=== PATIENT | female | born 1980 | race Caucasian/White ===

== ENCOUNTER 2020-12-13 19:10 | Emergency (ER) | payer OTHER, SELFPAY ==
--- NOTE | 2020-12-13 19:11 | XRR_ITS ---
PROCEDURE INFORMATION: Exam: XR Chest Exam date and time: 12/13/2020 7:11 PM Age: 40 years old Clinical indication: Pain; Angina pectoris; Additional info: Cp TECHNIQUE: Imaging protocol: XR of the chest. Views: 1 view. COMPARISON: CT abdomen pelvis w con* [id number] 01/08/2015 12:39 PM FINDINGS: Lungs: No focal consolidation. Minor linear scarring/atelectasis along the mid/lower aspects of both lungs. Pleural spaces: Unremarkable. No pleural effusion. No pneumothorax. Heart/Mediastinum: Unremarkable. No cardiomegaly. Bones/joints: Unremarkable. XR/XR chest 1V portable [id number] IMPRESSION: No acute cardiopulmonary findings. Minor linear scarring/atelectasis at the mid/lower aspects of both lungs.
--- NOTE | 2020-12-13 19:11 | ECG_ITS ---
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 Measurements Intervals [place] Rate: 100 P: 53 NM: 140 QRS: 61 QRSD: 86 T: 83 QT: 317 QTc: 410 Interpretive Statements SINUS TACHYCARDIA POSSIBLE LEFT ATRIAL ENLARGEMENT [-0.1mV P WAVE IN V1/V2] NONSPECIFIC ST & T-WAVE ABNORMALITY ABNORMAL RHYTHM ECG No previous ECG available for comparison Electronically Signed On 12-15-2020 17:16:23 CDT by Pito Silva M.D. [email or web address] [email or web address].[employer]store/OM/[id number]
[2020-12-13 19:16] VITALS: BP 149/95; PULSE 102; RESP 19; TEMP 36.8; O2SAT 92; BMI 45.7
--- NOTE | 2020-12-13 19:19 | W.ED.CHESTPA ---
HPI - Chest Pain General: Chief Complaint: General Medical Stated Complaint: chest pain Time Seen by Provider: 12/13/20 19:11 Source: patient and EMS Mode of arrival: EMS Limitations: no limitations History of Present Illness: HPI narrative: 40-year-old female states that she is having palpitations and chest pain roughly an hour ago. She states that she had her Cristina shot 3 hours ago feels like it may causes. She states that she has felt like she could not catch her breath and she was tachycardic and having a sharp pain. States her symptoms have since improved and they are very mild currently. She denies any fever. Denies any worsening improving factors. Denies any history of heart issues. Associated symptoms: Reports palpitations; Deny abdominal pain, dyspnea, fever(s), nausea or vomiting Review of Systems Const: Denies: fever(s), chills, body aches or change in appetite Eyes: Denies: blurry vision or eye discomfort ENMT: Denies: throat pain or dental pain Card: Reports: chest pain and palpitations Resp: Denies: dyspnea GI: Denies: abdominal pain, nausea, vomiting or diarrhea : Denies: dysuria Musc: Denies: neck pain or back pain Skin/Breast: Denies: rash Neuro: Denies: headache(s) Psych: Denies: depression Jorge/Lymph: Denies: easy bruising All/Imm: Denies: urticaria Physical Exam Const: COMMON NORMALS: no acute distress, patient oriented x3 and healthy appearing HENMT: COMMON NORMALS: normocephalic and atraumatic HEAD & SCALP: normocephalic and atraumatic Eye: COMMON NORMALS: Equal, round and reactive pupils present and EOMs intact bilaterally PUPIL: Yes Equal, round and reactive pupils present Neck/C-Spine: COMMON NORMALS: full ROM and supple Chest: COMMONS NORMALS: normal inspection of the chest and normal palpation of entire chest wall Resp: COMMON NORMALS: normal respiratory effort, No retractions, No use of accessory muscles and clear to auscultation bilaterally AUSCULTATION: clear to auscultation bilaterally Cardio: COMMON NORMALS: regular rate, regular rhythm and No murmurs present (Cardio) RATE: regular rate RHYTHM: regular rhythm GI: COMMON NORMALS: Normal to inspection, nondistended, normoactive bowel sounds present, Soft to palpation, non-tender and no masses PALPATION: Yes Soft to palpation Extremity: COMMON NORMALS: normal to inspection and full ROM Neuro: COMMON NORMALS: patient oriented x3, moves all extremities and no focal motor deficits Psych: COMMON NORMALS: mental status grossly normal, Normal thought process present and cooperative THOUGHT PROCESS: Normal thought process present Skin: COMMON NORMALS: no rashes or lesions noted and no wounds GENERAL SKIN EXAM: no rashes or lesions noted Course Vital Signs: Vital signs: Vital Signs Temperature 98.3 F 12/13/20 19:16 Pulse Rate 102 H 12/13/20 19:16 Respiratory Rate 19 H 12/13/20 19:16 Blood Pressure 149/95 12/13/20 19:16 Pulse Oximetry 92 12/13/20 19:16 MDM - Chest Pain MDM Narrative: Medical decision making narrative: Patient presents here with chest pain dyspnea after receiving her Covid vaccine but since all resolved. Her blood work here is all normal with initial repeat troponins normal. EKG is here been normal as well. She had no tachycardia here. She said no shortness of breath no signs of pulmonary embolism. She is stable for discharge and is to follow-up PCP and return if worsening. Lab Data: Labs: Lab Results 12/13/20 12/13/20 12/13/20 Range/Units 19:23 19:23 19:23 WBC (4.0-10.0) 10^3/ uL RBC (4.1-5.3) 10^6/u L Hgb (11.5-15.3) g/dL Hct (37.0-47.0) % MCV (81-99) fL MCH (28.0-34.0) pg MCHC (30.0-36.0) g/dL RDW (12.1-15.1) % Plt Count (130-400) 10^3/c mm MPV (7.4-10.4) fL Neut % (Auto) % Lymph % (Auto) % [place] % (Auto) % Eos % (Auto) % Baso % (Auto) % Neut # (Auto) (1.8-7.7) 10^3/u L Lymph # (Auto) (0.8-4.8) 10^3/u L [place] # (Auto) (0.2-0.9) 10^3/u L Eos # (Auto) (0.0-0.8) 10^3/u L Baso # (Auto) (0.0-0.1) 10^3/u L Nucleated RBC % (a uto) % Nucleated RBCs # /100WBC D-Dimer <= 0.27 (0-0.59) ug/mIFE U Sodium 134 L (136-145) mmol/L Potassium 4.5 (3.5-5.1) mmol/L Chloride 100 (98-107) mmol/L Carbon Dioxide 22 (22-29) mmol/L Anion Gap 16.5 (5-19) BUN 9 (6-20) mg/dL Creatinine 0.7 (0.5-0.9) mg/dL GFR Calculation 91.8 (90-130) mL/min Glucose 292 H (65-115) mg/dL Calculated Osmolal ity 287 (285-295) mOsm/k g Calcium 9.1 (8.5-10.5) mg/dL Total Bilirubin 0.2 (0.15-1.2) mg/dL AST 20 (0-32) U/L ALT 24 (0-33) U/L Alkaline Phosphata se 154 H (35-105) IU/L Troponin T Baselin e 6 (0-10) ng/L Troponin T 120 Min [place] (0-10) ng/L Delta Troponin T (0-10) ABS# NT-Pro-B Natriuret Pep 17 (0-125) pg/mL Total Protein 7.1 (6.6-8.7) g/dL Albumin 3.6 (3.5-5.2) g/dL Globulin 3.5 (1.3-4.6) g/dL 12/13/20 12/13/20 Range/Units 19:23 21:08 WBC 9.5 (4.0-10.0) 10^3/ uL RBC 4.59 (4.1-5.3) 10^6/u L Hgb 14.2 (11.5-15.3) g/dL Hct 43.6 (37.0-47.0) % MCV 95.0 (81-99) fL MCH 30.9 (28.0-34.0) pg MCHC 32.6 (30.0-36.0) g/dL RDW 13.4 (12.1-15.1) % Plt Count 271 (130-400) 10^3/c mm MPV 9.7 (7.4-10.4) fL Neut % (Auto) 65.4 % Lymph % (Auto) 27.9 % [place] % (Auto) 4.6 % Eos % (Auto) 1.2 % Baso % (Auto) 0.5 % Neut # (Auto) 6.21 (1.8-7.7) 10^3/u L Lymph # (Auto) 2.7 (0.8-4.8) 10^3/u L [place] # (Auto) 0.4 (0.2-0.9) 10^3/u L Eos # (Auto) 0.1 (0.0-0.8) 10^3/u L Baso # (Auto) 0.1 (0.0-0.1) 10^3/u L Nucleated RBC % (a uto) 0 % Nucleated RBCs # 0.0 /100WBC D-Dimer (0-0.59) ug/mIFE U Sodium (136-145) mmol/L Potassium (3.5-5.1) mmol/L Chloride (98-107) mmol/L Carbon Dioxide (22-29) mmol/L Anion Gap (5-19) BUN (6-20) mg/dL Creatinine (0.5-0.9) mg/dL GFR Calculation (90-130) mL/min Glucose (65-115) mg/dL Calculated Osmolal ity (285-295) mOsm/k g Calcium (8.5-10.5) mg/dL Total Bilirubin (0.15-1.2) mg/dL AST (0-32) U/L ALT (0-33) U/L Alkaline Phosphata se (35-105) IU/L Troponin T Baselin e (0-10) ng/L Troponin T 120 Min [place] 8.21 (0-10) ng/L Delta Troponin T 2.21 (0-10) ABS# NT-Pro-B Natriuret Pep (0-125) pg/mL Total Protein (6.6-8.7) g/dL Albumin (3.5-5.2) g/dL Globulin (1.3-4.6) g/dL Imaging Data^: CXR: Attestation: I personally reviewed and interpreted this imaging study as follows: Radiologist's impression: [address] [address] XRay Report Signed Patient: Oanh Souza Unit #: [id number] : 1980 Age/Sex: 40 / F ADM Date: 12/13/20 Loc: ER Room/Bed: Attending Dr: Ordering Provider/Ordering MD: Suzanna Wilkins MD Date of Service: 12/13/20 Procedure(s): XR chest 1V portable [id number] Accession Number(s): [id number] Report Number: [id number] PROCEDURE INFORMATION: Exam: XR Chest Exam date and time: 12/13/2020 7:11 PM Age: 40 years old Clinical indication: Pain; Angina pectoris; Additional info: Cp TECHNIQUE: Imaging protocol: XR of the chest. Views: 1 view. COMPARISON: CT abdomen pelvis w con* [id number] 01/08/2015 12:39 PM FINDINGS: Lungs: No focal consolidation. Minor linear scarring/atelectasis along the mid/lower aspects of both lungs. Pleural spaces: Unremarkable. No pleural effusion. No pneumothorax. Heart/Mediastinum: Unremarkable. No cardiomegaly. Bones/joints: Unremarkable. XR/XR chest 1V portable [id number] IMPRESSION: No acute cardiopulmonary findings. Minor linear scarring/atelectasis at the mid/lower aspects of both lungs. Dictated By: Jordan Bonilal DO EKG Data^: EKG 1: Attestation: I personally reviewed and interpreted this EKG as follows: EKG interpretation date: 12/13/20 EKG interpretation time: 19:24 Interpretation: sinus tach hr [address] or t wave abnormalities qrs 86 qtc 374 EKG 2: Attestation: I personally reviewed and interpreted this EKG as follows: EKG interpretation date: 12/13/20 EKG interpretation time: 21:21 Interpretation: nsr hr [address] or t wave abnormalities qrs 77 qtc 384 Discharge Plan Discharge Patient Disposition: Home Clinical Impression: Chest pain Qualifiers: Chest pain type: unspecified Qualified Code(s): R07.9 - Chest pain, unspecified Condition: Stable Prescriptions: No Action No Known Home Medications RF: 0 Discharge Orders: Discharge ED (Routine); Ordered 12/13/20 Ordered By: Suzanna Wilkins Discharge Diet: Advance as tolerated Discharge Activity: Resume usual activity Patient Instructions: Chest Pain (ED) Coding Level of Care Code ED Senior Living Sales Counselor for Nicole Fwd Exam Comprehensive
[2020-12-13 19:29] LABS: Basophils # 0.1 10^3/uL (0.0-0.1); Basophils % 0.5 %; Eosinophils # 0.1 10^3/uL (0.0-0.8); Eosinophils % 1.2 %; Hematocrit 43.6 % (37.0-47.0); Hemoglobin 14.2 g/dL (11.5-15.3); Lymphocytes # 2.7 10^3/uL (0.8-4.8); Lymphocytes % 27.9 %; Mean Corpuscular HGB Conc 32.6 g/dL (30.0-36.0); Mean Corpuscular Hemoglobin 30.9 pg (28.0-34.0); Mean Platelet Volume 9.7 fL (7.4-10.4); Monocytes # 0.4 10^3/uL (0.2-0.9); Monocytes % 4.6 %; Neutrophils # 6.21 10^3/uL (1.8-7.7); Neutrophils % 65.4 %; Nucleated Red Blood Cells % 0 %; Platelet Count 271 10^3/cmm (130-400); Red Blood Count 4.59 10^6/uL (4.1-5.3); Red Cell Distribution Width 13.4 % (12.1-15.1); White Blood Count 9.5 10^3/uL (4.0-10.0)
[2020-12-13 19:40] LABS: D Dimer <= 0.27 ug/mIFEU (0-0.59)
[2020-12-13 19:46] LABS: Troponin(5th) Baseline 6 ng/L (0-10)
[2020-12-13 19:58] LABS: Alanine Aminotransferase 24 U/L (0-33); Albumin Level 3.6 g/dL (3.5-5.2); Alkaline Phosphatase 154 IU/L (35-105); Aspartate Amino Transferase 20 U/L (0-32); Blood Urea Nitrogen 9 mg/dL (6-20); Calcium 9.1 mg/dL (8.5-10.5); Carbon Dioxide 22 mmol/L (22-29); Chloride 100 mmol/L (98-107); Globulin 3.5 g/dL (1.3-4.6); Glomerular Filtration Rate 91.8 mL/min (90-130); Glucose 292 mg/dL (65-115); NT Pro B Type Natriuretic Pept 17 pg/mL (0-125); Osmolality Calculated 287 mOsm/kg (285-295); Sodium 134 mmol/L (136-145); Total Bilirubin 0.2 mg/dL (0.15-1.2); Total Protein 7.1 g/dL (6.6-8.7)
[2020-12-13 20:07] LABS: Anion Gap 16.5 (5-19); Potassium 4.5 mmol/L (3.5-5.1)
--- NOTE | 2020-12-13 21:11 | ECG_ITS ---
[facility] Test Date: 2020-12-13 Pat Name: Oanh Souza Department: Room: Gender: Female Analysis Lead: : 1980 Requested By: Suzanna Wilkins Order Number: [id number] Nicky MD: Pito Silva M.D. Measurements Intervals [place] Rate: 84 P: 54 SC: 140 QRS: 62 QRSD: 77 T: 82 QT: 343 QTc: 407 Interpretive Statements SINUS RHYTHM POSSIBLE LEFT ATRIAL ENLARGEMENT [-0.1mV P WAVE IN V1/V2] NONSPECIFIC T-WAVE ABNORMALITY Compared to ECG 12/13/2020 19:24:31 Sinus tachycardia no longer present T-wave abnormality still present Electronically Signed On 12-15-2020 17:24:29 CDT by Pito Silva M.D. [email or web address].[employer]/store/OM/[id number]
[2020-12-13 21:48] LABS: Troponin 5 2HR 8.21 ng/L (0-10); Troponin 5 2HR Delta 2.21 ABS# (0-10)
[2020-12-13 22:15] VITALS: BP 161/83; PULSE 90; RESP 22; O2SAT 94
== END 2020-12-13 22:17 | disposition home or self-care (01) ==
PROVIDERS: Emergency Provider Emergency Medicine
DX: R07.9 Chest pain, unspecified (principal)
CPT/HCPCS: 71045; 80053; 83880; 84484; 85025; 85378; 93005; 99283

== ENCOUNTER 2021-01-14 10:11 | Outpatient (CLI) | payer OTHER, SELFPAY ==
--- NOTE | 2021-01-14 10:21 | XR_ITS ---
WS: [id number] Left foot, 3 views, 01/14/2021 Clinical Data: LEFT FOOT PAIN Comparison: None. Findings: No fractures or dislocations are seen. No bone destruction or erosion is noted. The joint spaces and soft tissues are normal. There is a plantar spur and an Achilles spur. XR/XR foot LT min 3V* [id number] Impression: Negative left foot.
== END 2021-01-14 10:12 | disposition home or self-care (01) ==
PROVIDERS: PCP Electrodiagnostic Medicine; Visit Provider Electrodiagnostic Medicine
DX: M79.672 Pain in left foot (principal)
CPT/HCPCS: 73630

== ENCOUNTER 2021-03-04 09:34 | Outpatient (CLI) | payer OTHER, SELFPAY ==
--- NOTE | 2021-03-04 09:39 | MM_ITS ---
WS: [id number] Exam: [place] [id number] Date/Time of Exam: 03/04/2021 9:42 AM Reason For Exam: SCREENING VIEWS: MLO and CC views both breasts. No previous exams. Findings: There was no sign of mass, architectural distortion or suspicious calcification in either breast. Fa tty MM/[place] [id number] Impression: BI-RADS: 2-Benign FOLLOW-UP: 1 Year Follow-up This mammogram was also analyzed by the Computer Aided Detection System R2 Imag e Singeing Torch Operator.
== END 2021-03-04 09:35 | disposition home or self-care (01) ==
PROVIDERS: PCP Electrodiagnostic Medicine; Visit Provider Electrodiagnostic Medicine
DX: Z12.31 Encounter for screening mammogram for malignant neoplasm of breast (principal)
CPT/HCPCS: 77067

== ENCOUNTER → 2021-03-17 09:56 | Outpatient (BNVA) | payer OTHER, SELFPAY | PROVIDERS: PCP Electrodiagnostic Medicine; Referring Provider Electrodiagnostic Medicine; Visit Provider Podiatrist Foot & Ankle Surgery | DX: M79.672 Pain in left foot (principal) | CPT/HCPCS: 73630 ==

== ENCOUNTER 2021-04-29 15:58 | Outpatient (CLI) | payer OTHER, SELFPAY | END 2021-04-29 15:59 | disposition home or self-care (01) | LOC: SPT 15:58 | PROVIDERS: PCP Electrodiagnostic Medicine; Visit Provider Podiatrist Foot & Ankle Surgery | DX: Z46.89 Encounter for fitting and adjustment of other specified devices (principal); M76.70 Peroneal tendinitis, unspecified leg; E11.9 Type 2 diabetes mellitus without complications | CPT/HCPCS: L3030 ==

== ENCOUNTER 2022-08-28 18:10 | Emergency (ER) | payer OTHER, SELFPAY ==
[2022-08-28 18:14] VITALS: BP 182/137; PULSE 90; RESP 18; TEMP 36.3; O2SAT 95; BMI 43.9
--- NOTE | 2022-08-28 18:24 | ECG_ITS ---
[facility] Test Date: 2022-08-28 Pat Name: Oanh Souza Department: Room: Gender: Female Deputy General Counsel: : 1980 Requested By: Holden Lopez Order Number: [id number] Nicky MD: Shantelle Beth M.D. Measurements Intervals [place] Rate: 79 P: 64 DC: 133 QRS: 67 QRSD: 76 T: 78 QT: 333 QTc: 384 Interpretive Statements SINUS RHYTHM NONSPECIFIC ST & T-WAVE ABNORMALITY Compared to ECG 12/13/2020 21:21:15 No significant changes Electronically Signed On 08-28-2022 23:05:19 CDT by Shantelle Beth M.D. [email or web address] [email or web address] specialty hospital of greenvilleChartCubehocking valley community hospitalEat Latin/store/OM/[id number]
--- NOTE | 2022-08-28 18:55 | XRR_ITS ---
PROCEDURE INFORMATION: Exam: XR Chest Exam date and time: 08/28/2022 7:03 PM Age: 42 years old Clinical indication: Other: Elevated blood pressure; Additional info: Elevated BP readings TECHNIQUE: Imaging protocol: Radiologic exam of the chest. Views: 1 view. COMPARISON: CR XR chest 1V portable [id number] 12/13/2020 7:20 PM FINDINGS: Lungs: Unremarkable. No consolidation. Pleural spaces: Unremarkable. No pleural effusion. No pneumothorax. Heart/Mediastinum: Unremarkable. No cardiomegaly. Bones/joints: Unremarkable. XR/XR chest 1V [id number] IMPRESSION: No acute findings.
[2022-08-28 19:30] LABS: Basophils # 0.1 10^3/uL (0.0-0.1); Basophils % 0.5 %; Eosinophils # 0.2 10^3/uL (0.0-0.8); Eosinophils % 1.4 %; Hematocrit 46.5 % (37.0-47.0); Hemoglobin 15.2 g/dL (11.5-15.3); Lymphocytes # 4.2 10^3/uL (0.8-4.8); Lymphocytes % 35.9 %; Mean Corpuscular HGB Conc 32.7 g/dL (30.0-36.0); Mean Corpuscular Hemoglobin 31.3 pg (28.0-34.0); Mean Corpuscular Volume 95.9 fl (81-99); Mean Platelet Volume 9.5 fL (7.4-10.4); Monocytes # 0.5 10^3/uL (0.2-0.9); Monocytes % 4.4 %; Neutrophils # 6.75 10^3/uL (1.8-7.7); Neutrophils % 57.5 %; Nucleated Red Blood Cells % 0 %; Platelet Count 259 10^3/cmm (130-400); Red Blood Count 4.85 10^6/uL (4.1-5.3); Red Cell Distribution Width 12.9 % (12.1-15.1); White Blood Count 11.7 10^3/uL (4.0-10.0)
[2022-08-28 20:01] LABS: Troponin T (5th) Once 6 ng/L (0-10)
[2022-08-28 20:07] LABS: Alanine Aminotransferase 23 U/L (0-33); Albumin Level 3.8 g/dL (3.5-5.2); Alkaline Phosphatase 129 U/L (35-105); Aspartate Amino Transferase 16 U/L (0-32); Blood Urea Nitrogen 5 mg/dL (6-20); Calcium 9.1 mg/dL (8.5-10.5); Carbon Dioxide 25 mmol/L (22-29); Chloride 101 mmol/L (98-107); Globulin 4.2 g/dL (1.3-4.6); Glucose 143 mg/dL (65-115); Osmolality Calculated 282 mOsm/kg (285-295); Sodium 136 mmol/L (136-145); Thyroid Stimulating Hormone 3.97 uIU/mL (0.27-4.20); Total Bilirubin 0.3 mg/dL (0.15-1.2)
[2022-08-28 20:14] LABS: Anion Gap 14.1 (5-19); Potassium 4.1 mmol/L (3.5-5.1)
[2022-08-28 20:54] LABS: Add Urine Microscopic? NO; Charge for UA Resulting for Rev
[2022-08-28 21:25] LABS: Urine Appearance Clear (CLEAR); Urine Color Colorless (Yellow)
[2022-08-28 21:26] LABS: Bilirubin Urine Neg (Negative); Blood Urine Neg (Negative); Glucose Urine UA Norm (Normal); Ketones Urine Negative (Negative); Leukocyte Esterase Urine Negative (Negative); Nitrate Urine Negative (Negative); Protein Urine Neg (Negative); Sulfosalicylic Acid Urine Negative (Negative); Urobilinogen Urine Neg (Negative); pH Urine 8 (5-7)
[2022-08-28 21:31] VITALS: BP 159/124; PULSE 82; RESP 15; O2SAT 93
--- NOTE | 2022-08-28 21:35 | CTR_ITS ---
PROCEDURE INFORMATION: Exam: CT Head Without Contrast Exam date and time: 08/28/2022 9:40 PM Age: 42 years old Clinical indication: Pain; Headache not specified; Additional info: Headache HTN TECHNIQUE: Imaging protocol: Computed tomography of the head without contrast. Radiation optimization: All CT scans at this facility use at least one of these dose optimization techniques: automated exposure control; mA and/or kV adjustment per patient size (includes targeted exams where dose is matched to clinical indication); or iterative reconstruction. REPORTING DATA: Count of CT and Cardiac NM exams in prior 12 months: This patient has received 0 known CTs and 0 known cardiac nuclear medicine studies in the 12 months prior to the current study. COMPARISON: No relevant prior studies available. RADIATION DOSE METRICS: Total DLP (mGy-cm): 1086.48 FINDINGS: Brain: Normal. No hemorrhage. Unremarkable white matter. No mass effect. Cerebral ventricles: No ventriculomegaly. Paranasal sinuses: Visualized sinuses are unremarkable. No fluid levels. Mastoid air cells: Visualized mastoid air cells are well aerated. Bones/joints: Unremarkable. No acute fracture. Soft tissues: Unremarkable. CT/CT head wo con* [id number] IMPRESSION: No acute intracranial abnormality.
[2022-08-28] MEDS: amlodipine 10 mg Tablet PO (21:47)
[2022-08-28] MEDS: cloNIDine 0.1 mg Tablet PO (21:47)
[2022-08-28 22:22] VITALS: BP 134/87; PULSE 80; RESP 13; O2SAT 93
--- NOTE | 2022-08-29 04:48 | ED_ITS ---
HPI - Headache General: Chief Complaint: Headache Stated Complaint: high bp, headache Time Seen by Provider: 08/28/22 20:13 Source: patient History of Present Illness: 42-year-old female here with headache, generalized fatigue, and high blood pressure. She does not take medicine for high blood pressure, and has never been diagnosed with hypertension. She does have a history of diabetes. When she felt ill, she took her blood pressure and it was significantly elevated. She denies chest discomfort. She does complain of paresthesia to the plantar surface of her right foot, but this is the only area of sensation change. No language or speech problems. No blurry vision. MD elicited complaint: headache Pertinent past history: other Onset (ago): hour(s) Onset description: gradually Location: frontal Quality & Timing: dull and constant Relieving factors: nothing Context: occurred at rest Associated symptoms: Deny chest pain, confusion, cough, eye redness, fever(s), lightheadedness, loss of vision, neck stiffness, photophobia, pre-syncope or vomiting Review of Systems Const: Denies: fever(s) Eyes: Denies: change in vision ENMT: Denies: throat pain Card: Denies: chest pain, lightheadedness or pre-syncope Resp: Denies: dyspnea GI: Denies: abdominal pain or vomiting Neuro: Reports: headache(s); Denies: confusion Physical Exam Const: COMMON NORMALS: no acute distress GENERAL APPEARANCE: cooperative; not ill appearing and not frail appearing HENMT: COMMON NORMALS: normocephalic, atraumatic and Normal external nose present HEAD & SCALP: normocephalic and atraumatic FACE & SINUS: normal facial exam and face symmetric NOSE: Normal external nose present Eye: COMMON NORMALS: Equal, round and reactive pupils present and EOMs intact bilaterally PUPIL: Yes Equal, round and reactive pupils present DIRECT OPHTHALMOSCOPY: No photophobia Neck/C-Spine: GENERAL: Yes trachea midline Chest: CHEST: Yes Symmetrical chest wall rise Resp: COMMON NORMALS: normal respiratory effort, No retractions, No use of accessory muscles and clear to auscultation bilaterally AUSCULTATION: clear to auscultation bilaterally Cardio: COMMON NORMALS: regular rate and regular rhythm RATE: regular rate RHYTHM: regular rhythm GI: COMMON NORMALS: Normal to inspection, nondistended, normoactive bowel sounds present Extremity: COMMON NORMALS: no pedal edema Neuro: TAYLER COMA SCALE: document GCS findings Tayler coma scale eye ope phi: Spontaneous [place] coma scale verbal response: Orientated [place] coma scale motor response: Obey commands Tayler coma scale total score: 15 SENSORY EXAM: Yes extremities (intact) Psych: COMMON NORMALS: speech normal SPEECH: Yes normal speech Skin: COMMON NORMALS: no rashes or lesions noted GENERAL SKIN EXAM: no rashes or lesions noted Course Vital Signs: Vital signs: Vital Signs Temperature 97.4 F L 08/28/22 18:14 Pulse Rate 80 08/28/22 22:22 Respiratory Rate 13 08/28/22 22:22 Blood Pressure 134/87 08/28/22 22:22 Pulse Oximetry 93 08/28/22 22:22 Oxygen Delivery Me thod 08/28/22 22:22 MDM - Headache Medical Decision Making Patient's blood pressure was significantly elevated initially. She was given clonidine, as well as amlodipine. It came down nicely and was 134/87 on discharge. Her headache was much improved with the blood pressure. CT is nonacute. Chest x-ray is nonacute. White blood cell count is 11.7. Other laboratories not remarkable. Urinalysis shows no proteinuria. Troponin is 6. She will be discharged to return if worsening. Treatment for hypertension is given Lab Data 08/28/22 19:20 08/28/22 19:20 Radiology Impressions Chest X-Ray 08/28/22 18:55 IMPRESSION: No acute findings. Head CT 08/28/22 21:35 IMPRESSION: No acute intracranial abnormality. Laboratory Results WBC 11.7 10^3/uL (4.0-10.0) H 08/28/22 19:20 RBC 4.85 10^6/uL (4.1-5.3) 08/28/22 19:20 Hgb 15.2 g/dL (11.5-15.3) 08/28/22 19:20 Hct 46.5 % (37.0-47.0) 08/28/22 19:20 MCV 95.9 fl (81-99) 08/28/22 19:20 MCH 31.3 pg (28.0-34.0) 08/28/22 19:20 MCHC 32.7 g/dL (30.0-36.0) 08/28/22 19:20 RDW 12.9 % (12.1-15.1) 08/28/22 19:20 Plt Count 259 10^3/cmm (130-400) 08/28/22 19:20 MPV 9.5 fL (7.4-10.4) 08/28/22 19:20 Neut % (Auto) 57.5 % 08/28/22 19:20 Lymph % (Auto) 35.9 % 08/28/22 19:20 [place] % (Auto) 4.4 % 08/28/22 19:20 Eos % (Auto) 1.4 % 08/28/22 19:20 Baso % (Auto) 0.5 % 08/28/22 19:20 Neut # (Auto) 6.75 10^3/uL (1.8-7.7) 08/28/22 19:20 Lymph # (Auto) 4.2 10^3/uL (0.8-4.8) 08/28/22 19:20 [place] # (Auto) 0.5 10^3/uL (0.2-0.9) 08/28/22 19:20 Eos # (Auto) 0.2 10^3/uL (0.0-0.8) 08/28/22 19:20 Baso # (Auto) 0.1 10^3/uL (0.0-0.1) 08/28/22 19:20 Nucleated RBC % (auto) 0 % 08/28/22 19:20 Nucleated RBCs # 0.0 /100WBC 08/28/22 19:20 Sodium 136 mmol/L (136-145) 08/28/22 19:20 Potassium 4.1 mmol/L (3.5-5.1) 08/28/22 19:20 Chloride 101 mmol/L (98-107) 08/28/22 19:20 Carbon Dioxide 25 mmol/L (22-29) 08/28/22 19:20 Anion Gap 14.1 (5-19) 08/28/22 19:20 BUN 5 mg/dL (6-20) L 08/28/22 19:20 Creatinine 0.5 mg/dL (0.5-0.9) 08/28/22 19:20 GFR Calculation 134.0 mL/min (90-130) H 08/28/22 19:20 Glucose 143 mg/dL (65-115) H 08/28/22 19:20 Calculated Osmolality 282 mOsm/kg (285-295) L 08/28/22 19:20 Calcium 9.1 mg/dL (8.5-10.5) 08/28/22 19:20 Total Bilirubin 0.3 mg/dL (0.15-1.2) 08/28/22 19:20 AST 16 U/L (0-32) 08/28/22 19:20 ALT 23 U/L (0-33) 08/28/22 19:20 Alkaline Phosphatase 129 U/L (35-105) H 08/28/22 19:20 Troponin T Gen 5 ng/L 6 ng/L (0-10) 08/28/22 19:20 Total Protein 8.0 g/dL (6.6-8.7) 08/28/22 19:20 Albumin 3.8 g/dL (3.5-5.2) 08/28/22 19:20 Globulin 4.2 g/dL (1.3-4.6) 08/28/22 19:20 TSH 3.97 uIU/mL (0.27-4.20) 08/28/22 19:20 Urine Color Colorless (Yellow) 08/28/22 18:50 Urine Appearance Clear (CLEAR) 08/28/22 18:50 Urine pH 8 (5-7) H 08/28/22 18:50 Ur Specific [place] 1.010 (1.005-1.030) 08/28/22 18:50 Urine Protein Neg (Negative) 08/28/22 18:50 Urine Glucose (UA) Norm (Normal) 08/28/22 18:50 Urine Ketones Negative (Negative) 08/28/22 18:50 Urine Blood Neg (Negative) 08/28/22 18:50 Urine Nitrate Negative (Negative) 08/28/22 18:50 Urine Bilirubin Neg (Negative) 08/28/22 18:50 Prot Sulfosalicylic Acd Negative (Negative) 08/28/22 18:50 Urine Urobilinogen Neg mg/dL (Negative) 08/28/22 18:50 Ur Leukocyte Esterase Negative (Negative) 08/28/22 18:50 Urine HCG, Qual Negative (Negative) 08/28/22 18:50 Discharge Plan Discharge Patient Disposition: Home Clinical Impression: Headache, Hypertension Condition: Stable Prescriptions: New amlodipine 10 mg tablet 10 mg PO DAILY Qty: 30 0RF No Action metformin 500 mg tablet 500 mg PO BID atorvastatin [Lipitor] 20 mg tablet 20 mg PO DAILY aspirin [Adult Aspirin Regimen] 81 mg tablet,delayed release (DR/EC) 81 mg PO DAILY (DME) Custom Molded Orthotic with a Deep Heel Cups See Rx Instructions .Route .MEDSUPPLY Qty: 1 0RF Rx Instructions: As directed naproxen [Naprosyn] 500 mg tablet 500 mg PO BID 30 Days Qty: 60 1RF Discharge Orders: Discharge ED (Routine); Ordered 08/28/22 Ordered By: Alex Coy Referrals: Bienvenido Hernandez, [Primary Care Provider] - 4-7 days Patient Instructions: Acute Headache (ED), Hypertension (ED) Activity Restrictions/Additional Instructions: Check your blood pressure twice daily. Record numbers and report them to your physician. If your blood pressure is staying above 140/90, take the prescribed medication. Return for mental status changes, weakness, language or vision problems, chest discomfort, other concerning symptoms. Coding Level of Care Code ED Clinical Care Leader for Nicole Suazo
== END 2022-08-28 23:07 | disposition home or self-care (01) ==
PROVIDERS: Physician Assistant; Emergency Provider Emergency Medicine; PCP Electrodiagnostic Medicine
DX: I10 Essential (primary) hypertension (principal); E11.9 Type 2 diabetes mellitus without complications; Z79.84 Long term (current) use of oral hypoglycemic drugs
CPT/HCPCS: 36415; 70450; 71045; 80053; 81003; 81025; 84443; 84484; 85025; 93005; 99285

== ENCOUNTER 2022-09-03 10:48 | Emergency (ER) | payer OTHER, SELFPAY ==
[2022-09-03] VITALS (9 sets, daily range): BP systolic 135–171; BP diastolic 91–112; PULSE 69–92; RESP 16–17; TEMP 36.6; O2SAT 95–99; BMI 43.9
--- NOTE | 2022-09-03 11:08 | ECG_ITS ---
[facility] Test Date: 2022-09-03 Pat Name: Oanh Souza Department: Room: Gender: Female Kettle Skimmer: : 1980 Requested By: Minh Roman Order Number: [id number] Nicky MD: Pito Silva M.D. Measurements Intervals [place] Rate: 93 P: 63 ND: 135 QRS: 66 QRSD: 73 T: 75 QT: 317 QTc: 395 Interpretive Statements SINUS RHYTHM NONSPECIFIC ST & T-WAVE ABNORMALITY Compared to ECG 08/28/2022 18:24:06 No significant changes Electronically Signed On 09-03-2022 18:42:30 CDT by Pito Silva M.D. [email or web address] [email or web address]/[id number]
--- NOTE | 2022-09-03 11:11 | ED_ITS ---
HPI - General Adult General: Chief complaint: General Medical Stated complaint: b/p high Time Seen by Provider: 09/03/22 11:11 History of Present Illness: Ms. Souza is a 42-year-old lady with history of diabetes presenting to the emergency department for high blood pressure and lip tingling. She reports similar presentation associated with headache on 08/28 and was seen in the emergency department. She was initiated on amlodipine. She has been taking this as prescribed. This morning blood pressure was approximately 140 systolic and she was feeling okay. While at work she noticed upper and lower lip bilateral tingling and took her blood pressure and noted that it was high. She does feel pressure in her head but otherwise denies new symptoms. Intensity symptoms is moderate. Course has persisted. No other specific changes in health, exacerbating, or alleviating factors identified. Onset (ago): hour(s) Location: face Severity: moderate Quality: other Relieving factors: none Exacerbating factors: none Associated symptoms: Reports no associated symptoms Review of Systems General: Reports: 10 or more systems reviewed and unremarkable except in HPI and below PFSH ED PFSH: Medical History Diabetic peripheral neuropathy associated with type 2 diabetes mellitus Hypertension Physical Exam Const: COMMON NORMALS: patient oriented x3 and alert GENERAL APPEARANCE: cooperative and well developed HENMT: COMMON NORMALS: normocephalic and atraumatic HEAD & SCALP: normocephalic and atraumatic Eye: COMMON NORMALS: conjunctivae normal CONJUNCTIVA: Yes conjunctivae normal SCLERA: sclerae normal Neck/C-Spine: COMMON NORMALS: supple GENERAL: Yes trachea midline Resp: COMMON NORMALS: clear to auscultation bilaterally EFFORT & INSPECTION: Yes able to speak in complete sentences AUSCULTATION: clear to auscultation bilaterally Cardio: COMMON NORMALS: regular rate and regular rhythm RATE: regular rate RHYTHM: regular rhythm GI: COMMON NORMALS: Soft to palpation PALPATION: Yes Soft to palpation and No Tenderness to palpation present (GI) Extremity: GENERAL: Yes normal exam except as noted and No edema Neuro: COMMON NORMALS: patient oriented x3, CN's II-XII intact bilaterally and moves all extremities SENSORIUM/ORIENTATION: Yes alert and No Orientation impaired Psych: COMMON NORMALS: mental status grossly normal and Normal thought process present THOUGHT PROCESS: Normal thought process present Course Vital Signs: Vital signs: Vital Signs Temperature 97.9 F 09/03/22 10:59 Pulse Rate 69 09/03/22 13:48 Respiratory Rate 16 09/03/22 13:48 Blood Pressure 135/97 09/03/22 13:48 Pulse Oximetry 95 09/03/22 13:48 Oxygen Delivery Me thod 09/03/22 12:43 MDM - General Adult Medical Decision Making 42-year-old lady presenting with high blood pressure and associated lip tingling. Exam as above, no focal neurologic deficits appreciated. Patient is nontoxic in appearance. EKG demonstrates sinus rhythm with normal axis and intervals, there are nonspecific ST segment abnormalities, no STEMI Labs with minimal leukocytosis improved from prior, mild hemoconcentration. Metabolic panel without evidence of endorgan dysfunction or significant acute abnormality. Urinalysis without evidence of urinary tract infection. Prior CT and chest radiography reviewed. Patient treated with metoprolol and clonidine with improvement in blood pressure and resolution of symptoms. I will plan to add clonidine as needed for blood pressure. This was discussed with the patient, she is comfortable with outpatient management and strict follow-up/return precautions. Most likely etiology of patient's symptoms is uncontrolled hypertension with no evidence of hypertensive emergency. The results of ED evaluation were discussed with the patient including prescriptions and/or symptomatic cares (if applicable) including appropriate and responsible use, followup plan, and return precautions. The patient verbalized understanding and felt safe for discharge. Medical Records I reviewed the patient's medical records. Lab Data I reviewed the patient's lab results. 09/03/22 11:47 09/03/22 11:47 Laboratory Results WBC 10.2 10^3/uL (4.0-10.0) H 09/03/22 11:47 RBC 5.10 10^6/uL (4.1-5.3) 09/03/22 11:47 Hgb 16.0 g/dL (11.5-15.3) H 09/03/22 11:47 Hct 48.9 % (37.0-47.0) H 09/03/22 11:47 MCV 95.9 fl (81-99) 09/03/22 11:47 MCH 31.4 pg (28.0-34.0) 09/03/22 11:47 MCHC 32.7 g/dL (30.0-36.0) 09/03/22 11:47 RDW 12.8 % (12.1-15.1) 09/03/22 11:47 Plt Count 256 10^3/cmm (130-400) 09/03/22 11:47 MPV 10.0 fL (7.4-10.4) 09/03/22 11:47 Neut % (Auto) 60.9 % 09/03/22 11:47 Lymph % (Auto) 33.1 % 09/03/22 11:47 [place] % (Auto) 4.0 % 09/03/22 11:47 Eos % (Auto) 1.0 % 09/03/22 11:47 Baso % (Auto) 0.6 % 09/03/22 11:47 Neut # (Auto) 6.21 10^3/uL (1.8-7.7) 09/03/22 11:47 Lymph # (Auto) 3.4 10^3/uL (0.8-4.8) 09/03/22 11:47 [place] # (Auto) 0.4 10^3/uL (0.2-0.9) 09/03/22 11:47 Eos # (Auto) 0.1 10^3/uL (0.0-0.8) 09/03/22 11:47 Baso # (Auto) 0.1 10^3/uL (0.0-0.1) 09/03/22 11:47 Nucleated RBC % (auto) 0 % 09/03/22 11:47 Nucleated RBCs # 0.0 /100WBC 09/03/22 11:47 Sodium 136 mmol/L (136-145) 09/03/22 11:47 Potassium 4.4 mmol/L (3.5-5.1) 09/03/22 11:47 Chloride 99 mmol/L (98-107) 09/03/22 11:47 Carbon Dioxide 25 mmol/L (22-29) 09/03/22 11:47 Anion Gap 16.4 (5-19) 09/03/22 11:47 BUN 7 mg/dL (6-20) 09/03/22 11:47 Creatinine 0.6 mg/dL (0.5-0.9) 09/03/22 11:47 GFR Calculation 108.6 mL/min (90-130) 09/03/22 11:47 Glucose 195 mg/dL (65-115) H 09/03/22 11:47 Calculated Osmolality 285 mOsm/kg (285-295) 09/03/22 11:47 Calcium 9.6 mg/dL (8.5-10.5) 09/03/22 11:47 Total Bilirubin 0.5 mg/dL (0.15-1.2) 09/03/22 11:47 AST 23 U/L (0-32) 09/03/22 11:47 ALT 25 U/L (0-33) 09/03/22 11:47 Alkaline Phosphatase 134 U/L (35-105) H 09/03/22 11:47 NT-Pro-B Natriuret Pep 36 pg/mL (0-125) 09/03/22 11:47 Total Protein 8.6 g/dL (6.6-8.7) 09/03/22 11:47 Albumin 3.9 g/dL (3.5-5.2) 09/03/22 11:47 Globulin 4.7 g/dL (1.3-4.6) H 09/03/22 11:47 TSH 2.47 uIU/mL (0.27-4.20) 09/03/22 11:47 Urine Color Yellow (Yellow) 09/03/22 11:47 Urine Appearance Clear (CLEAR) 09/03/22 11:47 Urine pH 8 (5-7) H 09/03/22 11:47 Ur Specific [place] 1.010 (1.005-1.030) 09/03/22 11:47 Urine Protein Neg (Negative) 09/03/22 11:47 Urine Glucose (UA) Norm (Normal) 09/03/22 11:47 Urine Ketones Negative (Negative) 09/03/22 11:47 Urine Blood Neg (Negative) 09/03/22 11:47 Urine Nitrate Negative (Negative) 09/03/22 11:47 Urine Bilirubin Neg (Negative) 09/03/22 11:47 Prot Sulfosalicylic Acd Negative (Negative) 09/03/22 11:47 Urine Urobilinogen Neg mg/dL (Negative) 09/03/22 11:47 Ur Leukocyte Esterase Negative (Negative) 09/03/22 11:47 Discharge Plan Discharge Patient Disposition: Home Clinical Impression: Hypertension Condition: Stable Prescriptions: New clonidine HCl 0.1 mg tablet 0.1 mg PO TID PRN (Reason: hypertension) Qty: 10 0RF No Action (DME) Custom Molded Orthotic with a Deep Heel Cups See Rx Instructions .Route .MEDSUPPLY Qty: 1 0RF Rx Instructions: As directed amlodipine 10 mg tablet 10 mg PO DAILY PRN (Reason: Blood Pressure) Discharge Orders: Discharge ED (Routine); Ordered 09/03/22 Ordered By: Holden Lopez Referrals: Bienvenido Hernandez, [Primary Care Provider] - Discharge Diet: Usual diet Discharge Activity: Resume usual activity Patient Instructions: Hypertension (ED) Activity Restrictions/Additional Instructions: Thank you for visiting the emergency department. You were seen and evaluated for high blood pressure associated with lip tingling. The exact cause of your symptoms is unclear though does not appear to need hospitalization at this time. I will prescribe clonidine that you can take every 8 hours as needed for blood pressure greater than 160 systolic or greater than 100 diastolic. Please continue your amlodipine. Please follow-up with your primary care provider. Return to the emergency department for anything that you are concerned about and feel needs emergency department evaluation. Coding Level of Care Code ED Appliance Service Supervisor for Nicole Suazo
[2022-09-03] MEDS: metoprolol tartrate 25 mg Tablet PO (11:46)
[2022-09-03 11:53] LABS: Add Urine Microscopic? NO; Charge for UA Resulting for Rev
[2022-09-03 12:00] LABS: Basophils # 0.1 10^3/uL (0.0-0.1); Basophils % 0.6 %; Eosinophils # 0.1 10^3/uL (0.0-0.8); Hematocrit 48.9 % (37.0-47.0); Lymphocytes # 3.4 10^3/uL (0.8-4.8); Lymphocytes % 33.1 %; Mean Corpuscular HGB Conc 32.7 g/dL (30.0-36.0); Mean Corpuscular Hemoglobin 31.4 pg (28.0-34.0); Mean Corpuscular Volume 95.9 fl (81-99); Monocytes # 0.4 10^3/uL (0.2-0.9); Neutrophils # 6.21 10^3/uL (1.8-7.7); Neutrophils % 60.9 %; Nucleated Red Blood Cells % 0 %; Platelet Count 256 10^3/cmm (130-400); Red Cell Distribution Width 12.8 % (12.1-15.1); White Blood Count 10.2 10^3/uL (4.0-10.0)
[2022-09-03 12:04] LABS: Bilirubin Urine Neg (Negative); Blood Urine Neg (Negative); Glucose Urine UA Norm (Normal); Ketones Urine Negative (Negative); Leukocyte Esterase Urine Negative (Negative); Nitrate Urine Negative (Negative); Protein Urine Neg (Negative); Sulfosalicylic Acid Urine Negative (Negative); Urine Appearance Clear (CLEAR); Urine Color Yellow (Yellow); Urobilinogen Urine Neg (Negative); pH Urine 8 (5-7)
[2022-09-03] MEDS: cloNIDine 0.1 mg Tablet PO ×2 (12:14→13:20)
[2022-09-03 12:28] LABS: Slide Review Slide Review Perform
[2022-09-03 12:32] LABS: Albumin Level 3.9 g/dL (3.5-5.2); Blood Urea Nitrogen 7 mg/dL (6-20); Calcium 9.6 mg/dL (8.5-10.5); Carbon Dioxide 25 mmol/L (22-29); Glomerular Filtration Rate 108.6 mL/min (90-130); NT Pro B Type Natriuretic Pept 36 pg/mL (0-125); Thyroid Stimulating Hormone 2.47 uIU/mL (0.27-4.20); Total Bilirubin 0.5 mg/dL (0.15-1.2); Total Protein 8.6 g/dL (6.6-8.7)
[2022-09-03 12:51] LABS: Alanine Aminotransferase 25 U/L (0-33); Alkaline Phosphatase 134 U/L (35-105); Chloride 99 mmol/L (98-107); Sodium 136 mmol/L (136-145)
[2022-09-03 12:52] LABS: Anion Gap 16.4 (5-19); Aspartate Amino Transferase 23 U/L (0-32); Potassium 4.4 mmol/L (3.5-5.1)
[2022-09-03 12:53] LABS: Glucose 195 mg/dL (65-115); Osmolality Calculated 285 mOsm/kg (285-295)
[2022-09-03 12:54] LABS: Globulin 4.7 g/dL (1.3-4.6)
== END 2022-09-03 13:49 | disposition home or self-care (01) ==
PROVIDERS: Emergency Provider Emergency Medicine; PCP Electrodiagnostic Medicine
DX: I10 Essential (primary) hypertension (principal); E11.9 Type 2 diabetes mellitus without complications
CPT/HCPCS: 80053; 81003; 83880; 84443; 85025; 93005; 99284

== ENCOUNTER 2023-02-04 12:53 | Outpatient (CLI) | payer OTHER, SELFPAY ==
--- NOTE | 2023-02-04 13:04 | MM_ITS ---
WS: [id number] SCREENING DIGITAL BREAST TOMOSYNTHESIS MAMMOGRAM WITH CAD HISTORY: SCREENING COMPARISON: 03/04/2021 Bilateral CC and MLO with tomosynthesis and synthetic mammography submitted. Computer aided detection analyzed. Breast composition: There are scattered areas of fibroglandular density. Slightly spiculated asymmetr y measuring 8.5 mm in the superior posterior RIGHT breast. This is seen only on the MLO projection. N ew since 2020. No additional abnormalities are noted within either breast. IMPRESSION: MM/[place] [id number] BI-RADS: 0-Incomplete: Need additional imaging evaluation FOLLOW UP: Need Additional Imaging RIGHT breast: Spot compression views (exaggerated lateral CC and MLO). True ML. Ultrasound to follow if abnormality persists.
== END 2023-02-04 12:54 | disposition home or self-care (01) ==
LOC: RAD 12:54 → MOBLMAM 13:03
PROVIDERS: PCP Electrodiagnostic Medicine; Visit Provider Nurse Practitioner Family
DX: Z12.31 Encounter for screening mammogram for malignant neoplasm of breast (principal)
CPT/HCPCS: 77063; 77067

== ENCOUNTER 2023-03-16 09:31 | Outpatient (CLI) | payer OTHER, SELFPAY ==
--- NOTE | 2023-03-16 09:42 | MM_ITS ---
WS: [id number] ADDITIONAL VIEWS RIGHT MAMMOGRAM WITH DIGITAL BREAST TOMOSYNTHESIS. HISTORY: ABNORMAL MAMMO COMPARISON: 02/04/2023 and 03/04/2021. Spot compression views RIGHT breast in CC, MLO projections and true ML submitted with digital breast tomosynthesis and SM. The asymmetry described on the screening mammogram in the superior RIGHT breast completely resolves w ith additional imaging. No residual abnormality. IMPRESSION: MM/[place] [id number] BI-RADS: 1-Negative FOLLOW UP: 1 Year Follow-up Return to annual screening mammography.
== END 2023-03-16 09:32 | disposition home or self-care (01) ==
PROVIDERS: PCP Nurse Practitioner Family; Visit Provider Nurse Practitioner Family
DX: R92.8 Other abnormal and inconclusive findings on diagnostic imaging of breast (principal)
CPT/HCPCS: 77061; G0279

== ENCOUNTER → 2024-01-28 16:52 | Outpatient (BNVA) | payer OTHER, SELFPAY | PROVIDERS: PCP Nurse Practitioner Family | DX: I87.8 Other specified disorders of veins (principal); M79.642 Pain in left hand | CPT/HCPCS: 73130 ==

== ENCOUNTER 2024-01-28 17:22 | Emergency (ER) | payer OTHER, SELFPAY ==
[2024-01-28 17:30] VITALS: BP 167/112; PULSE 79; RESP 16; TEMP 36.6; O2SAT 97
--- NOTE | 2024-01-28 18:11 | W.ED.EXTPRO ---
HPI - Extremity Problem General: Chief complaint: Extremity Injury, Upper Stated complaint: pinched nerve Time Seen by Provider: 01/28/24 17:42 History of Present Illness: Patient reports to the ER with a history of a pinched nerve. She states her pinky finger started hurting last night and now there is pain burning and tingling up the ulnar side of her hand through her elbow up into her shoulder. Patient has never had this before. Patient did not have any trauma to this area. Patient does have a history of a SLAP tear in her shoulder but she says this pain is different. Patient did go to urgent care today and had an x-ray that was read off as negative. They sent her over here for further evaluation and treatment. Patient states she is allergic to all injectable medicine as this causes tachycardia. Per previous records patient does have diabetic peripheral neuropathy with type 2 diabetes. Related Data Previous Rx's Medication Instructions Recorded hydrocodone 5 mg-acetaminophen 325 1 tab PO Q6H PRN pain #14 tabs 01/28/24 mg tablet prednisone 50 mg tablet 50 mg PO DAILY #5 tabs 01/28/24 Allergies Allergy/AdvReac Type Severity Reaction Status Date / Time Influenza Virus Vaccines Allergy Severe Heart pains Verified 01/28/24 17:34 codeine Allergy Unknown Verified 01/28/24 17:34 erythromycin base Allergy Unknown Verified 01/28/24 17:34 hydrochlorothiazide Allergy Unconscious Verified 01/28/24 17:34 shellfish derived Allergy Unknown Verified 01/28/24 17:34 BENADRYL, INJECTABLE Allergy Unknown Uncoded 01/28/24 17:34 INJECTABLE STEROIDS Allergy Unknown Uncoded 01/28/24 17:34 Review of Systems General: Reports: 10 or more systems reviewed and unremarkable except in HPI and below PFSH ED PFSH: Medical History Hypertension Diabetic peripheral neuropathy associated with type 2 diabetes mellitus Social History Smoking and tobacco/nicotine status: unknown if used tobacco/nicotine Physical Exam Const: COMMON NORMALS: no acute distress, average body habitus, patient oriented x3, no limitations, healthy appearing, alert and well nourished HENMT: COMMON NORMALS: normocephalic, atraumatic, hearing grossly normal bilaterally, external ears normal, Normal external nose present and moist oral mucous membranes HEAD & SCALP: normocephalic and atraumatic NOSE: Normal external nose present EXTERNAL EAR: Yes external ears normal Neck/C-Spine: COMMON NORMALS: no JVD Chest: COMMONS NORMALS: normal inspection of the chest, normal palpation of entire chest wall, normal inspection of the breasts and normal palpation of the breasts Breast/axilla inspection: Yes normal inspection of the breasts BREAST/AXILLA PALPATION: Yes normal palpation of the breasts Resp: COMMON NORMALS: normal respiratory effort, No retractions, No use of accessory muscles and clear to auscultation bilaterally AUSCULTATION: clear to auscultation bilaterally Cardio: COMMON NORMALS: no JVD, regular rate, regular rhythm, S1 normal heart sound present, S2 normal heart sound present, No gallops present (Cardio), No clicks present (Cardio), No murmurs present (Cardio) and No rub (Cardio) RATE: regular rate RHYTHM: regular rhythm HEART SOUNDS: S1 normal heart sound present and S2 normal heart sound present GI: COMMON NORMALS: Normal to inspection, nondistended, normoactive bowel sounds present, Soft to palpation, non-tender, No hepatosplenomegaly present and no masses PALPATION: Yes Soft to palpation and Yes No hepatosplenomegaly present Extremity: NARRATIVE EXTREMITY EXAM: Pain and burning in the ulnar distribution of the left upper extremity, pain with palpation over the fourth and fifth digit, with extension of the wrist, with palpation over the ulnar nerve at the elbow, Neuro: COMMON NORMALS: patient oriented x3 SENSORIUM/ORIENTATION: Yes alert Course Vital Signs: Vital signs: Vital Signs Temperature 97.9 F 01/28/24 17:30 Pulse Rate 79 01/28/24 17:30 Respiratory Rate 16 01/28/24 17:30 Blood Pressure 167/112 01/28/24 17:30 Pulse Oximetry 97 01/28/24 17:30 MDM - Extremity (Nontraumatic) Medical Decision Making The patient says she is allergic to a lot of different medicines and all injectable medicines. This is drastically limits our options. We will place the patient on a tapering dose of prednisone as well as give her a small prescription of [place] while we try to get her in with a neurologist for further evaluation and treatment. Medical Records I reviewed the patient's medical records. Lab Data I reviewed the patient's lab results. No radiology studies performed this visit ED provider radiology interpretation(s): X-ray performed by urgent care today revealed no acute fracture. Discharge Plan Discharge Patient Disposition: Home Clinical Impression: Neuropathy, ulnar nerve Qualifiers: Laterality: left Qualified Code(s): G56.22 - Lesion of ulnar nerve, left upper limb Condition: Stable Prescriptions: New hydrocodone-acetaminophen 5-325 mg tablet 1 tab PO Q6H PRN (Reason: pain) Qty: 14 0RF prednisone 50 mg tablet 50 mg PO DAILY Qty: 5 0RF Discharge Orders: Discharge ED (Routine); Ordered 01/28/24 Ordered By: Thaddeus Atkins Referrals: Lizeth Stafford FNP [Primary Care Provider] - 1 week Patient Instructions: Peripheral Neuropathy (ED), Paresthesia (ED), Opioid Safety, Pain Management Activity Restrictions/Additional Instructions: The x-ray performed earlier today was reviewed. It shows no acute fractures. Physical exam performed shows you have a ulnar neuropathy of your left upper extremity. This is irritation of the nerve. You will be prescribed prednisone and hydrocodone to help with this in the short-term. Case management has been consulted to make a referral for neurology for further evaluation and treatment. They should be calling you within the next couple of business days to arrange his appointment. Coding Level of Care Code ED Deputy Sheriff Chief for Nicole Suazo
[2024-01-28 19:04] VITALS: BP 170/90; PULSE 78; O2SAT 96
--- NOTE | 2024-01-31 07:49 | DCPLANNER ---
messaged neurology for er f/u
== END 2024-01-28 19:05 | disposition home or self-care (01) ==
PROVIDERS: Emergency Provider Emergency Medicine; PCP Nurse Practitioner Family
DX: E11.42 Type 2 diabetes mellitus with diabetic polyneuropathy (principal)
CPT/HCPCS: 99283

== ENCOUNTER → 2024-04-07 11:04 | Outpatient (BNVA) | payer OTHER, SELFPAY | PROVIDERS: PCP Nurse Practitioner Family; Visit Provider Emergency Medicine | DX: R05.9 Cough, unspecified (principal) | CPT/HCPCS: 87400; 87426 ==